=== PATIENT | male | born 1980 | race Caucasian/White ===

== ENCOUNTER → 2021-08-29 | Outpatient (CLI) | payer SELFPAY ==
[~2021-08-29] MED LIST: ACET325 PO; ACIDOPHILUS LA1 EACH PO; AMOX500 PO; AMOX875 PO; CEPH500 PO; FISH1000 PO; HYDACE5 PO; IBUP800 PO; OXYC5 PO; PSECHLCR PO
[2021-08-29 18:24] LABS: BASOPHILS ABSOLUTE AUTO 0.07 K/mm3 (0.00-0.23); BASOPHILS PERCENT AUTO 0 % (0-2); EOSINOPHILS ABSOLUTE AUTO 0.14 K/mm3 (0.00-0.68); EOSINOPHILS PERCENT AUTO 1 % (0-6); Hematocrit 41.4 % (37.0-53.0); Hemoglobin 14.3 g/dL (13.5-17.5); IMMATURE GRAN ABSOLUTE AUTO 0.11 K/mm3 (0.00-0.10); IMMATURE GRAN PERCENT AUTO 1 % (0-1); LYMPHOCYTES ABSOLUTE AUTO 1.62 K/mm3 (0.84-5.20); LYMPHOCYTES PERCENT AUTO 9 % (21-46); MONOCYTES ABSOLUTE AUTO 2.15 K/mm3 (0.16-1.47); MONOCYTES PERCENT AUTO 11 % (4-13); Mean Corpuscular HGB 30.1 pg (26.0-34.0); Mean Corpuscular HGB Conc 34.5 g/dL (31.5-36.5); Mean Corpuscular Volume 87 fL (80-100); Mean Platelet Volume 10.2 fL (9.1-12.4); NEUTROPHILS ABSOLUTE AUTO 14.81 K/mm3 (1.96-9.15); NEUTROPHILS PERCENT AUTO 78 % (41-73); Platelet Count 378 K/mm3 (150-400); RDW Coefficient Variation 12.1 % (11.7-14.2); RDW Standard Deviation 39.2 fL (35.1-46.3); Red Blood Cell Count 4.75 M/mm3 (4.30-5.90)
[2021-08-29 18:42] LABS: Alanine Aminotransfer (ALT/SGP 47 U/L (12-78); Albumin, Blood 3.3 g/dL (3.4-5.0); Albumin/Globulin Ratio 0.7 (0.8-1.8); Alk Phos 164 U/L (50-136); Anion Gap 11 mmol/L (6-16); Aspartate Aminotrans (AST/SGOT 19 U/L (12-37); Bilirubin, Total 0.9 mg/dL (0.1-1.0); Blood Urea Nitrogen 9 mg/dL (8-24); Bun/Creatinine Ratio 12.7 (12.0-20.0); CO2, Blood 28 mmol/L (21-32); Calcium, Blood 9.3 mg/dL (8.5-10.1); Chloride, Blood 95 mmol/L (98-108); Creatinine, Blood 0.71 mg/dL (0.60-1.20); Globulin, Blood 4.7 g/dL (2.2-4.0); Glomerular Filtration Rate >60 (60-); Glucose, Blood 100 mg/dL (70-99); Potassium, Blood 3.1 mmol/L (3.5-5.5); Sodium, Blood 134 mmol/L (136-145)
== END ==
LOC: LAB SHORT 16:21
PROVIDERS: Physician Assistant
DX: R10.9 Unspecified abdominal pain (principal)
CPT/HCPCS: 80053; 85025

== ENCOUNTER 2021-08-30 11:03 | Inpatient (IN) | payer OTHER ==
[~2021-08-30] VITALS: Ht 175.3 cm; Wt 106.6 kg
--- NOTE | 2021-08-31 04:39 | NUR ---
PT IS A&OX4, INDEPENDENT IN BED, IS ABLE TO AMBULATE TO BR TO VIOD. MULTIPLE COMPLAINTS OF PAIN THIS SHIFT, DILAUDID Q2 GIVEN FOR PAIN MANAGEMENT. PT COMPLAINS OF NAUSEA W/ EMESIS, STAGGERED ZOFRAN AND REGLAN FOR N/V. PT SLEEPS INTERMITTENTLY. REMAINS NPO. WILL CONTINUE TO MONITOR THIS PATIENT.
[2021-08-31 05:22] LABS: Alanine Aminotransfer (ALT/SGP 53 U/L (12-78); Albumin, Blood 2.7 g/dL (3.4-5.0); Albumin/Globulin Ratio 0.6 (0.8-1.8); Alk Phos 152 U/L (50-136); Anion Gap 11 mmol/L (6-16); Aspartate Aminotrans (AST/SGOT 33 U/L (12-37); Bilirubin, Total 1.3 mg/dL (0.1-1.0); Blood Urea Nitrogen 11 mg/dL (8-24); Bun/Creatinine Ratio 15.2 (12.0-20.0); CO2, Blood 25 mmol/L (21-32); Calcium, Blood 8.5 mg/dL (8.5-10.1); Chloride, Blood 100 mmol/L (98-108); Creatinine, Blood 0.73 mg/dL (0.60-1.20); Globulin, Blood 4.4 g/dL (2.2-4.0); Glomerular Filtration Rate >60 (60-); Glucose, Blood 116 mg/dL (70-99); Potassium, Blood 3.3 mmol/L (3.5-5.5); Sodium, Blood 136 mmol/L (136-145); Total Protein, Blood 7.1 g/dL (6.4-8.2)
[2021-08-31 05:32] LABS: BASOPHILS ABSOLUTE AUTO 0.05 K/mm3 (0.00-0.23); BASOPHILS PERCENT AUTO 0 % (0-2); EOSINOPHILS ABSOLUTE AUTO 0.03 K/mm3 (0.00-0.68); EOSINOPHILS PERCENT AUTO 0 % (0-6); Hematocrit 39.6 % (37.0-53.0); Hemoglobin 13.1 g/dL (13.5-17.5); IMMATURE GRAN ABSOLUTE AUTO 0.13 K/mm3 (0.00-0.10); IMMATURE GRAN PERCENT AUTO 1 % (0-1); LYMPHOCYTES ABSOLUTE AUTO 0.74 K/mm3 (0.84-5.20); LYMPHOCYTES PERCENT AUTO 4 % (21-46); MONOCYTES PERCENT AUTO 10 % (4-13); Mean Corpuscular HGB 29.7 pg (26.0-34.0); Mean Corpuscular HGB Conc 33.1 g/dL (31.5-36.5); Mean Corpuscular Volume 90 fL (80-100); Mean Platelet Volume 10.1 fL (9.1-12.4); NEUTROPHILS PERCENT AUTO 85 % (41-73); Platelet Count 372 K/mm3 (150-400); RDW Coefficient Variation 12.5 % (11.7-14.2); RDW Standard Deviation 41.5 fL (35.1-46.3); Red Blood Cell Count 4.41 M/mm3 (4.30-5.90); White Blood Cell Count 17.65 K/mm3 (4.00-11.30)
--- NOTE | 2021-08-31 05:36 | NUR ---
PT HAD POTASSIUM IV LAST NIGHT D/T K+ OF 3.1. MOST RECENT K+ IS 3.3.
--- NOTE | 2021-08-31 10:28 | NUR ---
Pt. is in bed and awake. Pt. welcomes my visit. Pt. is experiencing spiking pain, and is currently being treated for pain relief by nursing staff. Pt. is very unsetlled about not having insurance coverage. Listen empatheticially. Pt. verbally confides about recent stress from broken family trust and relationships. Pt. becomes cathartic. Provide pastoral presence. Pt. verbalizes gratitude for other supportive family members in his life. [place] with Pt. Pt. displays evidence of relief and reduced stress. Pt. verbalizes gratitude for both spiritual care and overall care he has received since admitting to hospital.
--- NOTE | 2021-09-01 03:39 | NUR ---
PT IS A&OX4, INDEPENDENT IN BED AND IS ABLE TO MAKE NEEDS KNOWN. HERE FOR PERFORATED DIVERTICULITIS. PAIN CONTROLLED WELL WITH PRN TORADOL AND DILAUDID. DIET HAS BEEN ADVANCED TO CLEAR LIQUID, PT IS TOLERATING THIS CHANGE WELL. PT IS ABLE TO AMBULATE TO . PT SLEEPS THIS NIGHT FOR SEVERAL HOURS. WILL CONTINUE TO MONITOR.
[2021-09-01 04:13] LABS: BASOPHILS ABSOLUTE AUTO 0.04 K/mm3 (0.00-0.23); BASOPHILS PERCENT AUTO 0 % (0-2); EOSINOPHILS ABSOLUTE AUTO 0.15 K/mm3 (0.00-0.68); EOSINOPHILS PERCENT AUTO 1 % (0-6); Hematocrit 36.6 % (37.0-53.0); IMMATURE GRAN ABSOLUTE AUTO 0.18 K/mm3 (0.00-0.10); IMMATURE GRAN PERCENT AUTO 1 % (0-1); LYMPHOCYTES ABSOLUTE AUTO 1.15 K/mm3 (0.84-5.20); LYMPHOCYTES PERCENT AUTO 8 % (21-46); MONOCYTES ABSOLUTE AUTO 1.56 K/mm3 (0.16-1.47); MONOCYTES PERCENT AUTO 11 % (4-13); Mean Corpuscular HGB 29.7 pg (26.0-34.0); Mean Corpuscular HGB Conc 32.8 g/dL (31.5-36.5); Mean Corpuscular Volume 91 fL (80-100); Mean Platelet Volume 9.5 fL (9.1-12.4); NEUTROPHILS ABSOLUTE AUTO 11.08 K/mm3 (1.96-9.15); NEUTROPHILS PERCENT AUTO 78 % (41-73); Platelet Count 350 K/mm3 (150-400); RDW Coefficient Variation 12.5 % (11.7-14.2); RDW Standard Deviation 41.5 fL (35.1-46.3); Red Blood Cell Count 4.04 M/mm3 (4.30-5.90); White Blood Cell Count 14.16 K/mm3 (4.00-11.30)
[2021-09-01 04:26] LABS: Albumin, Blood 2.3 g/dL (3.4-5.0); Anion Gap 7 mmol/L (6-16); Blood Urea Nitrogen 12 mg/dL (8-24); Bun/Creatinine Ratio 16.9 (12.0-20.0); CO2, Blood 30 mmol/L (21-32); Calcium, Blood 8.4 mg/dL (8.5-10.1); Chloride, Blood 98 mmol/L (98-108); Creatinine, Blood 0.71 mg/dL (0.60-1.20); Glomerular Filtration Rate >60 (60-); Glucose, Blood 110 mg/dL (70-99); Magnesium, Blood 2.3 mg/dL (1.6-2.4); Phosphorus, Blood 2.3 mg/dL (2.5-4.9); Potassium, Blood 3.4 mmol/L (3.5-5.5); Sodium, Blood 135 mmol/L (136-145)
--- NOTE | 2021-09-01 18:24 | NUR ---
SHIFT SUMMARY S/P PERFED DIVERTICULITIS, A/OX4, VSS, TOLERATING DIET, PAIN MANAGED PER EMAR, INDEPENDENT IN THE ROOM, PT SHOWERED TODAY AND REPROTED FEELING BETTER AFTERWARDS. ABX GIVEN ORDERED, NO ACUTE EVENTS TODAY, CALL LIGHT IN REACH, WILL CTM AND REPORT TO FANI RN.
--- NOTE | 2021-09-02 03:09 | NUR ---
PT IS A&OX4, VSS, INDEPENDENT IN ROOM AND IS ABLE TO MAKE NEEDS KNOWN. PT REPORTS PAIN BEING MUCH MORE TOLERABLE THIS NIGHT, IS ABLE TO SLEEP IN BETWEEN CARES. PT HAS BEEN AT HOSPITAL FOR 3 DAYS FOR PERFORATED DIVERTICULITIS, TREATED WITH SCHEDULED IV ABX. WILL CONTINUE TO MONITOR THIS PATIENT FOR ANY CHANGES.
--- NOTE | 2021-09-02 15:29 | NUR ---
SHIFT SUMMARY A/O X4, VSS, TOLERATING PO, AMBULATES INDEPENDENTLY, VOIDING WELL, SOME SMALL BM'S, AMBULATES IN HALLS, PAIN BETTER CONTROLLED TODAY USING LESS IV NARCOTICS. NO ACUTE EVENTS THIS SHIFT, CALL LIGHT IN REACH, WILL CTM AND REPORT TO ONCOMING NOC RN.
[2021-09-03 04:46] LABS: BASOPHILS ABSOLUTE AUTO 0.04 K/mm3 (0.00-0.23); BASOPHILS PERCENT AUTO 1 % (0-2); EOSINOPHILS ABSOLUTE AUTO 0.39 K/mm3 (0.00-0.68); EOSINOPHILS PERCENT AUTO 5 % (0-6); Hemoglobin 11.5 g/dL (13.5-17.5); IMMATURE GRAN ABSOLUTE AUTO 0.16 K/mm3 (0.00-0.10); IMMATURE GRAN PERCENT AUTO 2 % (0-1); LYMPHOCYTES ABSOLUTE AUTO 1.37 K/mm3 (0.84-5.20); LYMPHOCYTES PERCENT AUTO 16 % (21-46); MONOCYTES PERCENT AUTO 14 % (4-13); Mean Corpuscular HGB 29.6 pg (26.0-34.0); Mean Corpuscular HGB Conc 32.9 g/dL (31.5-36.5); Mean Corpuscular Volume 90 fL (80-100); Mean Platelet Volume 9.6 fL (9.1-12.4); NEUTROPHILS ABSOLUTE AUTO 5.33 K/mm3 (1.96-9.15); NEUTROPHILS PERCENT AUTO 63 % (41-73); Platelet Count 440 K/mm3 (150-400); RDW Coefficient Variation 12.4 % (11.7-14.2); RDW Standard Deviation 40.9 fL (35.1-46.3); Red Blood Cell Count 3.89 M/mm3 (4.30-5.90); White Blood Cell Count 8.49 K/mm3 (4.00-11.30)
[2021-09-03 05:04] LABS: Anion Gap 4 mmol/L (6-16); Blood Urea Nitrogen 6 mg/dL (8-24); Bun/Creatinine Ratio 8.2 (12.0-20.0); CO2, Blood 32 mmol/L (21-32); Calcium, Blood 8.6 mg/dL (8.5-10.1); Chloride, Blood 103 mmol/L (98-108); Creatinine, Blood 0.74 mg/dL (0.60-1.20); Glomerular Filtration Rate >60 (60-); Glucose, Blood 108 mg/dL (70-99); Potassium, Blood 3.1 mmol/L (3.5-5.5); Sodium, Blood 139 mmol/L (136-145)
--- NOTE | 2021-09-03 05:51 | NUR ---
SHIFT SUMMARY: SARAH IS A&OX4. VSS, NO ACUTE EVENTS OVERNIGHT. HE REPORTS ADEQUATE PAIN CONTROL WITH TORADOL, APAP, AND OXYCODONE. HE IS TOLERATING CLEAR LIQUIDS WELL, INDEPENDENT IN THE ROOM. HE IS LYING IN BED WITH THE CALL LIGHT IN REACH. WILL CONTINUE TO MONITOR UNTIL REPORT IS GIVEN TO DAY SHIFT RN.
--- NOTE | 2021-09-03 18:34 | NUR ---
SHIFT SUMMARY PT HAS DONE WELL T/O SHIFT. PAIN TOLERABLE WITH CURRENT PAIN MGMT ORDERS.TOLERATING FULL LIQUIDS WITH NO C/O N/V. SALINE LOCKED. PLAN IS CONTINUE WITH IV ABX AT THIS TIME.
--- NOTE | 2021-09-04 04:33 | NUR ---
SUMMARY NO NEW ISSUES NOTED. PT PAIN MANAGED WELL. PT HAS BEEN ABLE TO SLEEP WELL DURING SHIFT. PT CURRENTLY SLEEPING IN NO DISTRESS. CALL LIGHT IN REACH.
[2021-09-04 10:14] LABS: BASOPHILS ABSOLUTE AUTO 0.07 K/mm3 (0.00-0.23); BASOPHILS PERCENT AUTO 1 % (0-2); EOSINOPHILS ABSOLUTE AUTO 0.37 K/mm3 (0.00-0.68); EOSINOPHILS PERCENT AUTO 2 % (0-6); Hematocrit 41.2 % (37.0-53.0); Hemoglobin 13.6 g/dL (13.5-17.5); IMMATURE GRAN ABSOLUTE AUTO 0.13 K/mm3 (0.00-0.10); IMMATURE GRAN PERCENT AUTO 1 % (0-1); LYMPHOCYTES ABSOLUTE AUTO 1.34 K/mm3 (0.84-5.20); LYMPHOCYTES PERCENT AUTO 9 % (21-46); MONOCYTES PERCENT AUTO 11 % (4-13); Mean Corpuscular HGB 29.7 pg (26.0-34.0); Mean Corpuscular Volume 90 fL (80-100); Mean Platelet Volume 9.3 fL (9.1-12.4); NEUTROPHILS PERCENT AUTO 76 % (41-73); Platelet Count 546 K/mm3 (150-400); RDW Coefficient Variation 12.4 % (11.7-14.2); RDW Standard Deviation 41.1 fL (35.1-46.3); Red Blood Cell Count 4.58 M/mm3 (4.30-5.90); White Blood Cell Count 15.31 K/mm3 (4.00-11.30)
[2021-09-04 10:27] LABS: Anion Gap 7 mmol/L (6-16); Blood Urea Nitrogen 5 mg/dL (8-24); Bun/Creatinine Ratio 6.2 (12.0-20.0); CO2, Blood 28 mmol/L (21-32); Calcium, Blood 8.9 mg/dL (8.5-10.1); Chloride, Blood 101 mmol/L (98-108); Creatinine, Blood 0.81 mg/dL (0.60-1.20); Glomerular Filtration Rate >60 (60-); Glucose, Blood 120 mg/dL (70-99); Potassium, Blood 3.6 mmol/L (3.5-5.5); Sodium, Blood 136 mmol/L (136-145)
[2021-09-04] MEDS ORDERED: METR500 PO (11:21)
[2021-09-04] MEDS ORDERED: LEVO750 PO (11:21)
[2021-09-04] MEDS ORDERED: PANT20 PO (11:22)
--- NOTE | 2021-09-04 12:08 | NUR ---
DISCHARGE SUMMARY PATIENT ALERT AND ORIENTED THROUGHOUT SHIFT. INDEPENDENT IN ROOM. TOLERATING FULL LIQUIDS. DECLINES PAIN MEDS. ABD SOFT AND NON-TENDER. PASSING GAS AND BM THIS SHIFT. DISCHARGE ORDERS OBTAINED. DISCHARGE EDUCATION GIVEN ON NEW MEDS, ACTIVITY, DIET, AND FOLLOW UP APPTS AND IMAGING. IV DC'D WNL. PT LEFT UNIT AT 1200 VIA WHEELCHAIR FOR HOME.
== END 2021-09-04 11:57 | disposition home or self-care (01) | DRG 392 ==
LOC: ER 11:03 → SURS 11:04
PROVIDERS: Internal Medicine; Nurse Practitioner Acute Care; ADMIT Surgery
DX: K57.20 Diverticulitis of large intestine with perforation and abscess without bleeding (principal); E87.6 Hypokalemia; Z79.899 Other long term (current) drug therapy; F10.20 Alcohol dependence, uncomplicated; Z98.890 Other specified postprocedural states
CPT/HCPCS: 36415; 74177; 80048; 80053; 80069; 83605; 83735; 85025; 87040; 96365; 96366; 96375; 99285-25; A9270; C9113; G0378; J1170; J1885; J2405; J2543; J2765; J3010; J3411; J3480; J7030; J7050; Q9967

== ENCOUNTER 2021-09-19 05:24 | Inpatient (IN) | payer OTHER ==
[~2021-09-19] VITALS: Ht 175.3 cm; Wt 104.2 kg
[~2021-09-19 05:24] MED LIST changes: +LEVO750 PO; +METR500 PO; +PANT20 PO
[2021-09-19 05:53] LABS: BASOPHILS ABSOLUTE AUTO 0.07 K/mm3 (0.00-0.23); BASOPHILS PERCENT AUTO 1 % (0-2); EOSINOPHILS PERCENT AUTO 3 % (0-6); Hematocrit 40.4 % (37.0-53.0); Hemoglobin 13.1 g/dL (13.5-17.5); IMMATURE GRAN ABSOLUTE AUTO 0.04 K/mm3 (0.00-0.10); IMMATURE GRAN PERCENT AUTO 0 % (0-1); LYMPHOCYTES ABSOLUTE AUTO 1.68 K/mm3 (0.84-5.20); LYMPHOCYTES PERCENT AUTO 14 % (21-46); MONOCYTES ABSOLUTE AUTO 1.28 K/mm3 (0.16-1.47); MONOCYTES PERCENT AUTO 11 % (4-13); Mean Corpuscular HGB 28.9 pg (26.0-34.0); Mean Corpuscular HGB Conc 32.4 g/dL (31.5-36.5); Mean Corpuscular Volume 89 fL (80-100); Mean Platelet Volume 9.5 fL (9.1-12.4); NEUTROPHILS ABSOLUTE AUTO 8.76 K/mm3 (1.96-9.15); NEUTROPHILS PERCENT AUTO 72 % (41-73); Platelet Count 561 K/mm3 (150-400); RDW Coefficient Variation 12.9 % (11.7-14.2); RDW Standard Deviation 42.3 fL (35.1-46.3); Red Blood Cell Count 4.53 M/mm3 (4.30-5.90); White Blood Cell Count 12.13 K/mm3 (4.00-11.30)
[2021-09-19 06:05] LABS: Alanine Aminotransfer (ALT/SGP 32 U/L (12-78); Albumin, Blood 2.9 g/dL (3.4-5.0); Albumin/Globulin Ratio 0.6 (0.8-1.8); Alk Phos 126 U/L (50-136); Anion Gap 8 mmol/L (6-16); Aspartate Aminotrans (AST/SGOT 18 U/L (12-37); Bilirubin, Total 0.4 mg/dL (0.1-1.0); Blood Urea Nitrogen 7 mg/dL (8-24); Bun/Creatinine Ratio 9.3 (12.0-20.0); CO2, Blood 26 mmol/L (21-32); Calcium, Blood 9.4 mg/dL (8.5-10.1); Chloride, Blood 104 mmol/L (98-108); Creatinine, Blood 0.75 mg/dL (0.60-1.20); Globulin, Blood 4.6 g/dL (2.2-4.0); Glomerular Filtration Rate >60 (60-); Glucose, Blood 134 mg/dL (70-99); Potassium, Blood 3.8 mmol/L (3.5-5.5); Sodium, Blood 138 mmol/L (136-145); Total Protein, Blood 7.5 g/dL (6.4-8.2)
[2021-09-19 08:17] LABS: Source, Urine Clean Catch
[2021-09-19 08:25] LABS: Bilirubin, Urine Neg (Neg); Blood, Urine Neg (Neg); Glucose Qualitative, Urine Neg (Neg); Ketones, Urine 3+ (Neg); Leukocyte Esterase, Urine Neg (Neg); Nitrite, Urine Neg (Neg); Protein, Urine Neg (Neg); Urobilinogen, Urine NORM (Normal)
[2021-09-19 08:28] LABS: Appearance, Urine Clear (Clear); Color, Urine Yellow (P-Yellow)
--- NOTE | 2021-09-19 10:30 | NUR ---
PT ARRIVED TO UNIT ABOUT 1030 FROM ER, VIA GURNEY. STAND & PIVOT TO BED W/ SBA. VSS ON RA. MOD ABD DISTENTION W/ 5/10 PAIN TO PALPITATION TO RLQ & LLQ. REPORTS 3/10 PAIN AT REST, DENIES NEED FOR PAIN MEDICATION AT THIS TIME. DENIES N/V. ORIENTED TO ROOM & CALL LIGHT.
[2021-09-19 13:56] LABS: Influenza A, PCR NEGATIVE (NEGATIVE); Influenza B, PCR NEGATIVE (NEGATIVE); Resp Syncytial Virus, PCR NEGATIVE (NEGATIVE); SARS-Cov-2 (COVID-19) PCR, MMC NEGATIVE (NEGATIVE)
--- NOTE | 2021-09-19 17:51 | NUR ---
SHIFT SUMMARY VSS SINCE ARRIVAL TO UNIT. PATIENT DEVELOPED CHILLS, TEMP CHECKED AND AT 99.7, PAIN INCREASED T/O SHIFT, PATIENT VOMITTED GREEN FLUID X1, DR. CHARLES MADE AWARE OF PATIENT CONDITION. MD UPDATED PAIN MEDICATION ORDER, NO OTHER ORDERS RECIEVED. REMAINS NPO W/ ICE CHIPS, IV FLUIDS RUNNING. WILL REPORT TO ONCOMING RN.
[2021-09-20 03:48] LABS: BASOPHILS ABSOLUTE AUTO 0.04 K/mm3 (0.00-0.23); BASOPHILS PERCENT AUTO 0 % (0-2); EOSINOPHILS ABSOLUTE AUTO 0.07 K/mm3 (0.00-0.68); EOSINOPHILS PERCENT AUTO 1 % (0-6); Hematocrit 35.2 % (37.0-53.0); Hemoglobin 11.4 g/dL (13.5-17.5); IMMATURE GRAN ABSOLUTE AUTO 0.05 K/mm3 (0.00-0.10); IMMATURE GRAN PERCENT AUTO 0 % (0-1); LYMPHOCYTES ABSOLUTE AUTO 0.58 K/mm3 (0.84-5.20); LYMPHOCYTES PERCENT AUTO 5 % (21-46); MONOCYTES ABSOLUTE AUTO 1.15 K/mm3 (0.16-1.47); MONOCYTES PERCENT AUTO 10 % (4-13); Mean Corpuscular HGB 28.7 pg (26.0-34.0); Mean Corpuscular HGB Conc 32.4 g/dL (31.5-36.5); Mean Corpuscular Volume 89 fL (80-100); Mean Platelet Volume 9.5 fL (9.1-12.4); NEUTROPHILS ABSOLUTE AUTO 10.13 K/mm3 (1.96-9.15); NEUTROPHILS PERCENT AUTO 84 % (41-73); Platelet Count 402 K/mm3 (150-400); RDW Standard Deviation 42.6 fL (35.1-46.3); Red Blood Cell Count 3.97 M/mm3 (4.30-5.90); White Blood Cell Count 12.02 K/mm3 (4.00-11.30)
[2021-09-20 04:05] LABS: Alanine Aminotransfer (ALT/SGP 24 U/L (12-78); Albumin, Blood 2.5 g/dL (3.4-5.0); Albumin/Globulin Ratio 0.6 (0.8-1.8); Alk Phos 129 U/L (50-136); Anion Gap 8 mmol/L (6-16); Aspartate Aminotrans (AST/SGOT 14 U/L (12-37); Blood Urea Nitrogen 7 mg/dL (8-24); Bun/Creatinine Ratio 9.2 (12.0-20.0); CO2, Blood 26 mmol/L (21-32); Calcium, Blood 8.6 mg/dL (8.5-10.1); Chloride, Blood 102 mmol/L (98-108); Creatinine, Blood 0.76 mg/dL (0.60-1.20); Globulin, Blood 4.2 g/dL (2.2-4.0); Glomerular Filtration Rate >60 (60-); Glucose, Blood 101 mg/dL (70-99); Potassium, Blood 3.6 mmol/L (3.5-5.5); Sodium, Blood 136 mmol/L (136-145); Total Protein, Blood 6.7 g/dL (6.4-8.2)
--- NOTE | 2021-09-20 05:05 | NUR ---
SODA JERKER SUMMARY PT AAOX4 AND INDEPENDENT IN ROOM. NPO EXCEPT FOR ICE CHIPS. MEDICATED WITH 1 MG IV DILAUDID Q 2-3 HOURS FOR LOWER ABD AND BACK PAIN. PT HAS HAD MULTIPLE BM'S TONIGHT. 2 TIMES TONIGHT PT WOULD DEVELOP SOME CHILLS FOLLOWED BY NAUSEA WITH A LOW GRADE TEMP 99'S. PER DAY SHIFT RN PT EXPERIENCED SAME THING EARLIER. SYMPTOMS WOULD QUICKLY SUBSIDE. VSS, WILL CONTINUE TO MONITOR.
--- NOTE | 2021-09-20 11:30 | NUR ---
Pt. is in bed and welcomes my visit. Pt. is a re-admit. Pt. is unsettled by the the resurance of his infection, resulting in hospitalization. 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 Pt. displays evidence of overall improved health and verbalized that he had been eating well and lost weight since his last discharge. Prayed with pt. Pt. verbalized gratitude for the spiritual care visit.
--- NOTE | 2021-09-20 19:08 | NUR ---
SHIFT SUMMARY VSS ON RA, MILD ABD DISTENTION TENDER TO PALPITATION IN RLQ. REPORTS PAIN TO MOVE TO BACK AT TIMES. PAIN MANAGED W/ DILAUDID PER EMAR. ADVANCED TO CLEAR LIQUIDS TODAY AND TOLERATING WELL. DENIES N/V, DENIES FLATUS, REPORTED BM THIS AM. AMBULATED HALLWAYS WELL X1. WILL REPORT TO ONCIMING RN.
[2021-09-21 04:01] LABS: BASOPHILS ABSOLUTE AUTO 0.05 K/mm3 (0.00-0.23); BASOPHILS PERCENT AUTO 1 % (0-2); EOSINOPHILS ABSOLUTE AUTO 0.22 K/mm3 (0.00-0.68); EOSINOPHILS PERCENT AUTO 3 % (0-6); IMMATURE GRAN ABSOLUTE AUTO 0.04 K/mm3 (0.00-0.10); IMMATURE GRAN PERCENT AUTO 1 % (0-1); LYMPHOCYTES ABSOLUTE AUTO 1.31 K/mm3 (0.84-5.20); LYMPHOCYTES PERCENT AUTO 16 % (21-46); MONOCYTES ABSOLUTE AUTO 1.24 K/mm3 (0.16-1.47); MONOCYTES PERCENT AUTO 15 % (4-13); Mean Corpuscular HGB 29.3 pg (26.0-34.0); Mean Corpuscular HGB Conc 33.3 g/dL (31.5-36.5); Mean Corpuscular Volume 88 fL (80-100); Mean Platelet Volume 9.6 fL (9.1-12.4); NEUTROPHILS ABSOLUTE AUTO 5.51 K/mm3 (1.96-9.15); NEUTROPHILS PERCENT AUTO 66 % (41-73); Platelet Count 402 K/mm3 (150-400); RDW Coefficient Variation 13.2 % (11.7-14.2); RDW Standard Deviation 42.6 fL (35.1-46.3); Red Blood Cell Count 4.09 M/mm3 (4.30-5.90); White Blood Cell Count 8.37 K/mm3 (4.00-11.30)
[2021-09-21 04:20] LABS: Alanine Aminotransfer (ALT/SGP 28 U/L (12-78); Albumin, Blood 2.6 g/dL (3.4-5.0); Albumin/Globulin Ratio 0.6 (0.8-1.8); Alk Phos 131 U/L (50-136); Anion Gap 9 mmol/L (6-16); Aspartate Aminotrans (AST/SGOT 14 U/L (12-37); Bilirubin, Total 0.5 mg/dL (0.1-1.0); Blood Urea Nitrogen 5 mg/dL (8-24); Bun/Creatinine Ratio 6.6 (12.0-20.0); CO2, Blood 29 mmol/L (21-32); Calcium, Blood 8.8 mg/dL (8.5-10.1); Chloride, Blood 99 mmol/L (98-108); Creatinine, Blood 0.76 mg/dL (0.60-1.20); Globulin, Blood 4.3 g/dL (2.2-4.0); Glomerular Filtration Rate >60 (60-); Glucose, Blood 109 mg/dL (70-99); Potassium, Blood 3.5 mmol/L (3.5-5.5); Sodium, Blood 137 mmol/L (136-145); Total Protein, Blood 6.9 g/dL (6.4-8.2)
--- NOTE | 2021-09-21 05:19 | NUR ---
GEOSPATIAL DEVELOPERTECHNOLOGY APPLICATIONS ENGINEER SUMMARY PATIENT A&O X4 AND COOPERATIVE WITH CARE THROUGHOUT THE NIGHT. PATIENT COMPLAINED OF 4/10 ABDOMINAL PAIN PERIODICALLY THROUGHOUT THE NIGHT. PATIENT WAS MEDICATED WITH IV DILAUDED PER EMAR AND PAIN WAS REDUCED TO 3/10. PATIENT SLEPT FOR SEVERAL HOURS DURING THE NIGHT. IV ZOSYN WAS ADMINISTERED PER EMAR. VSS. NO ACUTE CHANGES OCCURRED DURING THE NIGHT.
--- NOTE | 2021-09-21 17:48 | NUR ---
SHIFT SUMMARY VSS ON RA. ABDOMINAL PAIN T/O SHOFT, MEDICATED PER EMAR. REPORTS PAIN MUCH IMPORVED W/ THE ORAL PAIN MEDICATION. AMBULATED HALLS & UP TO CHAIR T/O DAY. TOLERATING CLEAR LIQUID DIET WELL, DENIES N/V. REPORTS HAVING 2 BM'S TODAY, SMALL AND LIQUID/SOFT. WILL REPORT TO ONCOMING RN.
--- NOTE | 2021-09-21 21:36 | NUR ---
REPORT TO ISABELLE SALDAÑA TO ASSUME CARE OF PT.
--- NOTE | 2021-09-22 04:18 | NUR ---
CLAIM REP SUMMARY PT AAOX4 AND INDEPENDENT. MEDICATED AT START OF SHIFT WITH IV DILAUDID X1 FOR SOME BREAKTHROUGH PAIN, HOWEVER PAIN HAS BEEN FAIRLY WELL MANAGED WITH PO PAIN MEDS SINCE THEN. GOOD PO FLUID INTAKE. VSS, WILL CONTINUE TO MONITOR.
[2021-09-22 05:17] LABS: BASOPHILS ABSOLUTE AUTO 0.03 K/mm3 (0.00-0.23); BASOPHILS PERCENT AUTO 0 % (0-2); EOSINOPHILS ABSOLUTE AUTO 0.23 K/mm3 (0.00-0.68); EOSINOPHILS PERCENT AUTO 3 % (0-6); Hematocrit 35.8 % (37.0-53.0); Hemoglobin 11.9 g/dL (13.5-17.5); IMMATURE GRAN ABSOLUTE AUTO 0.03 K/mm3 (0.00-0.10); IMMATURE GRAN PERCENT AUTO 0 % (0-1); LYMPHOCYTES ABSOLUTE AUTO 1.24 K/mm3 (0.84-5.20); LYMPHOCYTES PERCENT AUTO 15 % (21-46); MONOCYTES ABSOLUTE AUTO 1.32 K/mm3 (0.16-1.47); MONOCYTES PERCENT AUTO 16 % (4-13); Mean Corpuscular HGB 29.1 pg (26.0-34.0); Mean Corpuscular HGB Conc 33.2 g/dL (31.5-36.5); Mean Corpuscular Volume 88 fL (80-100); Mean Platelet Volume 9.5 fL (9.1-12.4); NEUTROPHILS ABSOLUTE AUTO 5.62 K/mm3 (1.96-9.15); NEUTROPHILS PERCENT AUTO 66 % (41-73); Platelet Count 417 K/mm3 (150-400); RDW Standard Deviation 41.8 fL (35.1-46.3); Red Blood Cell Count 4.09 M/mm3 (4.30-5.90); White Blood Cell Count 8.47 K/mm3 (4.00-11.30)
[2021-09-22] MEDS ORDERED: AMOCLA875 PO (08:14)
[2021-09-22] MEDS ORDERED: Percocet 5-3251 EACH PO (08:15)
== END 2021-09-22 10:00 | disposition home or self-care (01) | DRG 392 ==
LOC: ER 05:24 → SURS 05:25
PROVIDERS: Emergency Medicine; Family Medicine; ADMIT Surgery
DX: K57.20 Diverticulitis of large intestine with perforation and abscess without bleeding (principal); Z79.899 Other long term (current) drug therapy; Z20.822 Contact with and (suspected) exposure to COVID-19
CPT/HCPCS: 0241U; 36415; 74177; 80053; 81003; 83690; 85025; 96365; 96366; 96375; 96376; 99285-25; A9270; G0378; J1170; J2270; J2405; J2543; J7030; J7120; Q9967

== ENCOUNTER 2021-11-12 15:44 | Emergency (ER) | payer OTHER ==
[~2021-11-12] VITALS: Ht 175.3 cm; Wt 93.9 kg
[~2021-11-12 15:44] MED LIST changes: +AMOCLA875 PO; +Percocet 5-3251 EACH PO
[2021-11-12 16:54] LABS: BASOPHILS ABSOLUTE AUTO 0.03 K/mm3 (0.00-0.23); BASOPHILS PERCENT AUTO 0 % (0-2); EOSINOPHILS ABSOLUTE AUTO 0.24 K/mm3 (0.00-0.68); EOSINOPHILS PERCENT AUTO 2 % (0-6); IMMATURE GRAN ABSOLUTE AUTO 0.03 K/mm3 (0.00-0.10); IMMATURE GRAN PERCENT AUTO 0 % (0-1); LYMPHOCYTES ABSOLUTE AUTO 1.51 K/mm3 (0.84-5.20); LYMPHOCYTES PERCENT AUTO 14 % (21-46); MONOCYTES ABSOLUTE AUTO 0.98 K/mm3 (0.16-1.47); MONOCYTES PERCENT AUTO 9 % (4-13); Mean Corpuscular HGB 28.7 pg (26.0-34.0); Mean Corpuscular HGB Conc 32.4 g/dL (31.5-36.5); Mean Corpuscular Volume 89 fL (80-100); Mean Platelet Volume 9.8 fL (9.1-12.4); NEUTROPHILS ABSOLUTE AUTO 7.95 K/mm3 (1.96-9.15); NEUTROPHILS PERCENT AUTO 74 % (41-73); Platelet Count 317 K/mm3 (150-400); RDW Coefficient Variation 14.4 % (11.7-14.2); RDW Standard Deviation 46.4 fL (35.1-46.3); Red Blood Cell Count 4.18 M/mm3 (4.30-5.90); White Blood Cell Count 10.74 K/mm3 (4.00-11.30)
[2021-11-12 17:16] LABS: Albumin, Blood 3.4 g/dL (3.4-5.0); Albumin/Globulin Ratio 0.8 (0.8-1.8); Bilirubin, Total 0.5 mg/dL (0.1-1.0); Bun/Creatinine Ratio 11.5 (12.0-20.0); Calcium, Blood 9.2 mg/dL (8.5-10.1); Creatinine, Blood 0.7 mg/dL (0.60-1.20); Globulin, Blood 4.2 g/dL (2.2-4.0); Potassium, Blood 3.8 mmol/L (3.5-5.5); Total Protein, Blood 7.6 g/dL (6.4-8.2)
[2021-11-12] MEDS ORDERED: HYDR1TAB94 PO (20:23)
[2021-11-12] MEDS ORDERED: ONDA4ODT MM (20:23)
[2021-11-12] MEDS ORDERED: AMOCLA875 PO (20:23)
[2021-11-13] MEDS ORDERED: HYDR1TAB94 PO (14:58)
[2021-11-13] MEDS ORDERED: AMOCLA875 PO (14:58)
== END 2021-11-12 20:36 | disposition home or self-care (01) ==
LOC: ER 15:44
PROVIDERS: Physician Assistant
DX: R10.32 Left lower quadrant pain (principal); R93.5 Abnormal findings on diagnostic imaging of other abdominal regions, including retroperitoneum; Z87.19 Personal history of other diseases of the digestive system; Z79.899 Other long term (current) drug therapy
CPT/HCPCS: 36415; 74177; 80053; 83690; 85025; 96374-59; 99284-25; A9270; Q9967

== ENCOUNTER 2021-12-10 19:09 | Inpatient (IN) | payer OTHER ==
[~2021-12-10] VITALS: Ht 175.3 cm; Wt 90.7 kg
[~2021-12-10 19:09] MED LIST changes: +HYDR1TAB94 PO; +ONDA4ODT MM
[2021-12-10 20:27] LABS: BASOPHILS ABSOLUTE AUTO 0.03 K/mm3 (0.00-0.23); BASOPHILS PERCENT AUTO 0 % (0-2); EOSINOPHILS ABSOLUTE AUTO 0.05 K/mm3 (0.00-0.68); EOSINOPHILS PERCENT AUTO 0 % (0-6); Hematocrit 39.3 % (37.0-53.0); IMMATURE GRAN ABSOLUTE AUTO 0.08 K/mm3 (0.00-0.10); IMMATURE GRAN PERCENT AUTO 1 % (0-1); LYMPHOCYTES ABSOLUTE AUTO 1.21 K/mm3 (0.84-5.20); LYMPHOCYTES PERCENT AUTO 7 % (21-46); MONOCYTES ABSOLUTE AUTO 1.27 K/mm3 (0.16-1.47); MONOCYTES PERCENT AUTO 7 % (4-13); Mean Corpuscular HGB 28.3 pg (26.0-34.0); Mean Corpuscular HGB Conc 33.1 g/dL (31.5-36.5); Mean Corpuscular Volume 85 fL (80-100); Mean Platelet Volume 9.8 fL (9.1-12.4); NEUTROPHILS PERCENT AUTO 85 % (41-73); Platelet Count 329 K/mm3 (150-400); RDW Coefficient Variation 14.7 % (11.7-14.2); RDW Standard Deviation 46.1 fL (35.1-46.3); White Blood Cell Count 17.44 K/mm3 (4.00-11.30)
[2021-12-10 20:52] LABS: Albumin, Blood 3.5 g/dL (3.4-5.0); Albumin/Globulin Ratio 0.8 (0.8-1.8); Bilirubin, Total 1.2 mg/dL (0.1-1.0); Calcium, Blood 9.4 mg/dL (8.5-10.1); Creatinine, Blood 0.72 mg/dL (0.60-1.20); Globulin, Blood 4.3 g/dL (2.2-4.0); Potassium, Blood 3.3 mmol/L (3.5-5.5); Total Protein, Blood 7.8 g/dL (6.4-8.2)
[2021-12-10 21:17] LABS: Source, Urine Clean Catch
[2021-12-10 21:22] LABS: Appearance, Urine Clear (Clear); Bilirubin, Urine Neg (Neg); Blood, Urine Neg (Neg); Color, Urine Pale Yellow (P-Yellow); Glucose Qualitative, Urine Neg (Neg); Ketones, Urine 2+ (Neg); Leukocyte Esterase, Urine Neg (Neg); Nitrite, Urine Neg (Neg); Protein, Urine Neg (Neg); Specific Gravity, Urine 1.005 (1.003-1.022); Urobilinogen, Urine NORM (Normal); pH, Urine 6.5 (5.0-8.0)
--- NOTE | 2021-12-11 17:54 | NUR ---
SHIFT SUMMARY PT A&OX4, VSS/RA, WAL[place] PO CLD, VOIDING, AMB INDEPENDENTLY IN ROOM/HALLWAY/BRP. PAIN TREATED WITH 5 MG OXY/TYLENOL/TORADOL AND DILAUDID 0.5 MG X1. WILL REPORT TO ONCOMING NOC RN.
[2021-12-12 04:47] LABS: BASOPHILS ABSOLUTE AUTO 0.03 K/mm3 (0.00-0.23); BASOPHILS PERCENT AUTO 0 % (0-2); EOSINOPHILS PERCENT AUTO 2 % (0-6); Hematocrit 34.4 % (37.0-53.0); IMMATURE GRAN ABSOLUTE AUTO 0.03 K/mm3 (0.00-0.10); IMMATURE GRAN PERCENT AUTO 0 % (0-1); LYMPHOCYTES ABSOLUTE AUTO 1.16 K/mm3 (0.84-5.20); LYMPHOCYTES PERCENT AUTO 11 % (21-46); MONOCYTES ABSOLUTE AUTO 1.09 K/mm3 (0.16-1.47); MONOCYTES PERCENT AUTO 11 % (4-13); Mean Corpuscular HGB 28.1 pg (26.0-34.0); Mean Corpuscular Volume 88 fL (80-100); Mean Platelet Volume 10.1 fL (9.1-12.4); NEUTROPHILS ABSOLUTE AUTO 7.89 K/mm3 (1.96-9.15); NEUTROPHILS PERCENT AUTO 76 % (41-73); Platelet Count 253 K/mm3 (150-400); RDW Coefficient Variation 14.6 % (11.7-14.2); RDW Standard Deviation 47.2 fL (35.1-46.3); Red Blood Cell Count 3.92 M/mm3 (4.30-5.90)
[2021-12-12 05:02] LABS: Bun/Creatinine Ratio 6.7 (12.0-20.0); Calcium, Blood 8.7 mg/dL (8.5-10.1); Creatinine, Blood 0.75 mg/dL (0.60-1.20); Potassium, Blood 3.8 mmol/L (3.5-5.5)
--- NOTE | 2021-12-12 06:26 | NUR ---
PT VSS T/O NIGHT. PT REP ABD PAIN LESS SHARP THIS AM, STATES IT FEELS "MORE DULL AND CRAMPY" PT REP PASSING FLATUS, NO BM YET. PT W[place] CL PO, DENIES N/V, IS VOIDING URINE W/O DIFFICULTY. PT AMB INDEP IN ROOM, WALDEMAR WELL. IVF AND ABX CONT PER ORDERS.
--- NOTE | 2021-12-12 12:10 | NUR ---
Pt. is sitting up in bed and on his laptop. Pt. welcomes my visit. Pt. is unsettled about the four hospital visits he has had in the last several months. Listen empathetically and normalize the Pt. experience. Pt. displays evidence of confidence and occsasional pain and discomfort. [place] rapport. Prayed for Pt. Pt. verbalized gratitude for the spiritual care visit.
--- NOTE | 2021-12-12 15:44 | NUR ---
SHIFT SUMMARY PT A&OX4, VSS/RA, W[place]DE[place] CLD, VOIDING WELL, INDEPENDENT IN ROOM/HALLWAY, PAIN TREATED WITH 5 OXY, TYLENOL AND TORADOL; DILAUDID 0.5 MG GIVEN 1X. PT STILL REP ABD PAIN 2-4. ABX INFUSED PER EMAR; SL OTHERWISE. WILL REPORT TO ONCOMING NOC RN.
--- NOTE | 2021-12-13 06:36 | NUR ---
PT VSS T/O NIGHT. PT REP ABD PAIN 08/17. REP PAIN CRAMPY AT REST, SHARP W/MVMT. PT WALDEMAR CL, DENIED N/V, REP + FLATUS, NO BM YET. PT INDEP IN ROOM, IS VOIDING URINE W/O DIFFICULTY.
--- NOTE | 2021-12-13 07:21 | NUR ---
ASSUMED CARE: PT ALERT AND TALKING TO STAFF DURING BEDSIDE REPORT. DENIES COMPLAINTS AT THIS TIME. BUILDING CLEANER AND NIGHT RN AT BEDSIDE. NO ACUTE NEEDS OR CONCERNS.
--- NOTE | 2021-12-13 13:27 | NUR ---
DR JERRY CAME TO SEE PT AND EDUCATED HIM ON PAIN MANAGEMENT AND COURSE OF ACTION. DR TO CHANGE PAIN MEDICATION TO SEE IF MANAGEMENT IMPROVES WITH THIS AND DR CHARLES WILL FOLLOW UP DAY TO DAY
--- NOTE | 2021-12-13 15:45 | NUR ---
Pt. is awake in bed and welcomes my visit. Pt. requests I close the door and quickly becomes cathartic. Pt. displays evidence of pressure to be strong for family when he is dealing with such discomfort. Pastoral career counselor is given with a calming presence. Pt. displays evidence of peace and trust and we re-establish rapport while facilitating a life review. Pt. still experiences abdominal pain. [place] with Pt. Pt. verbalizes gratitude for the spiritual care visit.
--- NOTE | 2021-12-13 18:46 | NUR ---
SHIFT SUMMARY: WORKED WITH PT ON PAIN MANAGEMENT TODAY AND FOUND THAT [address] JERRY'S FOCUS IS ON PAIN MANAGEMENT PRIOR TO DC. PT MEDICATED X1 FOR NAUSEA. AMBULATORY IN HALLS AND INDEPENDENT. NO ACUTE NEEDS OR CONCERNS AT THIS TIME.
[2021-12-14 04:45] LABS: BASOPHILS ABSOLUTE AUTO 0.03 K/mm3 (0.00-0.23); BASOPHILS PERCENT AUTO 0 % (0-2); EOSINOPHILS ABSOLUTE AUTO 0.32 K/mm3 (0.00-0.68); EOSINOPHILS PERCENT AUTO 3 % (0-6); Hematocrit 33.3 % (37.0-53.0); Hemoglobin 10.6 g/dL (13.5-17.5); IMMATURE GRAN ABSOLUTE AUTO 0.03 K/mm3 (0.00-0.10); IMMATURE GRAN PERCENT AUTO 0 % (0-1); LYMPHOCYTES ABSOLUTE AUTO 1.28 K/mm3 (0.84-5.20); LYMPHOCYTES PERCENT AUTO 12 % (21-46); MONOCYTES ABSOLUTE AUTO 1.38 K/mm3 (0.16-1.47); MONOCYTES PERCENT AUTO 13 % (4-13); Mean Corpuscular HGB 27.8 pg (26.0-34.0); Mean Corpuscular HGB Conc 31.8 g/dL (31.5-36.5); Mean Corpuscular Volume 87 fL (80-100); Mean Platelet Volume 9.9 fL (9.1-12.4); NEUTROPHILS ABSOLUTE AUTO 7.67 K/mm3 (1.96-9.15); NEUTROPHILS PERCENT AUTO 72 % (41-73); Platelet Count 318 K/mm3 (150-400); RDW Coefficient Variation 14.1 % (11.7-14.2); RDW Standard Deviation 44.6 fL (35.1-46.3); Red Blood Cell Count 3.81 M/mm3 (4.30-5.90); White Blood Cell Count 10.71 K/mm3 (4.00-11.30)
[2021-12-14 05:03] LABS: Bun/Creatinine Ratio 3.7 (12.0-20.0); Creatinine, Blood 0.81 mg/dL (0.60-1.20); Potassium, Blood 3.3 mmol/L (3.5-5.5)
--- NOTE | 2021-12-14 07:36 | NUR ---
PT AWOKE AROUND MIDNIGHT W/INCREASED ABD PAIN. PT REP PAIN MORE SHARP, REQUIRED IV DILAUDID FOR BREAKTHROUGH PAIN. PT REP PAIN LESS SEVERE THIS AM. RATES PAIN 3/10, APPEARS MORE COMFORTABLE THAN PREVIOUS RATINGS OF 3/10, REP 10MG OXY MANAGING PAIN (OTHER THAN PREV MENTIONED EPISODE). PT WAL[place] FL PO, DENIED N/V, REP +FLATUS. ABD SLIGHTLY MORE FIRM THIS AM. PT LYING IN BED THIS AM DURING BEDSIDE REPORT, DENIED NEEDS.
--- NOTE | 2021-12-14 18:47 | NUR ---
pt has been stable and afebrile this shift. pt pain managed with prn meds. mild nausea x2, prn zofran effective. poor appetite and tolerance of full liquid diet. pt to change to oral abx this evening. pt had bm this shift. indep in room. labs to repeat in am. plan for resection outpatient.
--- NOTE | 2021-12-15 04:09 | NUR ---
ASSUMED CARE OF PT AT 1900. PT IS A&OX4, INDEPENDENT IN ROOM AND CALLS APPROPRIATELY. STARTED ON ORAL ABX LAST EVENING, PT TOLERATING CLEAR DIET. NO COMPLAINTS OF NAUSEA THIS SHIFT. DALE CONTROLLED WITH PRN EDWARD 10MG. PT RESTS BETWEEN CARES, SLEEPS 6+ HOURS THIS SHIFT. WILL GIVE HANDOFF REPORT TO ONCOMING DAYSHIFT RN
[2021-12-15 04:24] LABS: BASOPHILS ABSOLUTE AUTO 0.03 K/mm3 (0.00-0.23); BASOPHILS PERCENT AUTO 0 % (0-2); EOSINOPHILS ABSOLUTE AUTO 0.43 K/mm3 (0.00-0.68); EOSINOPHILS PERCENT AUTO 4 % (0-6); Hematocrit 32.9 % (37.0-53.0); Hemoglobin 10.8 g/dL (13.5-17.5); IMMATURE GRAN ABSOLUTE AUTO 0.03 K/mm3 (0.00-0.10); IMMATURE GRAN PERCENT AUTO 0 % (0-1); LYMPHOCYTES ABSOLUTE AUTO 1.59 K/mm3 (0.84-5.20); LYMPHOCYTES PERCENT AUTO 16 % (21-46); MONOCYTES ABSOLUTE AUTO 1.22 K/mm3 (0.16-1.47); MONOCYTES PERCENT AUTO 12 % (4-13); Mean Corpuscular HGB Conc 32.8 g/dL (31.5-36.5); Mean Corpuscular Volume 85 fL (80-100); Mean Platelet Volume 9.3 fL (9.1-12.4); NEUTROPHILS ABSOLUTE AUTO 6.74 K/mm3 (1.96-9.15); NEUTROPHILS PERCENT AUTO 67 % (41-73); Platelet Count 326 K/mm3 (150-400); RDW Coefficient Variation 13.9 % (11.7-14.2); RDW Standard Deviation 43.2 fL (35.1-46.3); Red Blood Cell Count 3.86 M/mm3 (4.30-5.90); White Blood Cell Count 10.04 K/mm3 (4.00-11.30)
[2021-12-15] MEDS ORDERED: ONDA4ODT MM (09:36)
[2021-12-15] MEDS ORDERED: AMOCLA875 PO (09:36)
[2021-12-15] MEDS ORDERED: ROXICODONE5 MG PO (09:38)
--- NOTE | 2021-12-15 11:02 | NUR ---
DISCHARGE: PACKET PRINTED AND PT EDUCATED. PT GIVEN SCRIPTS, DID NOT NEED TO FAX ANY MEDS. PT DENIED NEED FOR WHEELCHAIR, LEFT UNIT ON FOOT WITH SON AT ABOUT 1045
== END 2021-12-15 10:44 | disposition home or self-care (01) | DRG 391 ==
LOC: ER 19:09 → SURS 12-11 04:06
PROVIDERS: Physician Assistant; Surgery; ADMIT Surgery
DX: K57.20 Diverticulitis of large intestine with perforation and abscess without bleeding (principal); K65.1 Peritoneal abscess; E11.9 Type 2 diabetes mellitus without complications; D72.829 Elevated white blood cell count, unspecified; Z79.2 Long term (current) use of antibiotics; Z79.891 Long term (current) use of opiate analgesic; Z79.899 Other long term (current) drug therapy; Z98.890 Other specified postprocedural states
CPT/HCPCS: 36415; 74177; 80048; 80053; 81003; 83605; 83690; 85025; 87040; 96374; 96375; 96376; 99285-25; A9270; G0378; J1170; J1885; J2270; J2405; J2543; J3480; J7030; J7050; Q9967

== ENCOUNTER 2022-03-28 07:00 | Day surgery (SDC) | payer OTHER ==
[~2022-03-28] VITALS: Ht 175.3 cm; Wt 84.6 kg
[~2022-03-28 07:00] MED LIST changes: +Acerola C500 MG PO; +Children's Clari5 MG PO; +OMEP20ER PO; +POTA8 PO; +PROBIOTIC1 EA13 PO; +PSYSENPA PO; +ROXICODONE5 MG PO; +ZYRTEC10 M2 PO; +[UNRECOGNIZED DRUG - CODE] PO
[2022-04-03] MEDS ORDERED: DOCU100 PO (13:31)
[2022-04-03] MEDS ORDERED: Percocet 5-3251 EACH PO (13:31)
== END 2022-03-28 09:12 | disposition home or self-care (01) ==
LOC: ORSCSDS 07:00
PROVIDERS: Surgery
PROC: 0DJD8ZZ Inspection of Lower Intestinal Tract, Via Natural or Artificial Opening Endoscopic (ICD-10-PCS; principal; 2022-03-28 08:00)
DX: K57.20 Diverticulitis of large intestine with perforation and abscess without bleeding (principal); Z87.19 Personal history of other diseases of the digestive system; K64.8 Other hemorrhoids; Z79.899 Other long term (current) drug therapy
CPT/HCPCS: J2704; J7120

== ENCOUNTER 2023-04-10 06:05 | Day surgery (SDC) | payer OTHER ==
[~2023-04-10] VITALS: Ht 175.3 cm; Wt 94.7 kg
[~2023-04-10 06:05] MED LIST changes: +ASCO500 PO; +Acetaminophen325 M1 PO; +CALCIUM CIT 311 EAC7 PO; +DOCU100 PO; +POTASSIUM99 M3; +PROBIOTIC PO; +PSYSENPA
[2023-04-10 06:37] VITALS: BP 119/77
--- NOTE | 2023-04-10 07:17 | NUR ---
History, Chart, Medications and Allergies reviewed before start of procedure. Patient confirms NPO status and agrees with scheduled surgery. Surgical site prepped with 2% Chlorhexidine cloth wipe. Patient reports completing Chlorhexadine shower X2 prior to admission to hospital. Pre-Op teaching done. Pt verbalizes understanding. Patient States Post-Procedure ride home has been arranged.
[2023-04-10 09:00] VITALS: BP 133/88
[2023-04-10 09:05] VITALS: BP 125/76
[2023-04-10 09:15] VITALS: BP 131/99
--- NOTE | 2023-04-10 09:25 | NUR ---
REPORT FROM MERVIN RICHARD RN. PT AXOX4, ABLE TO REPOSITION SELF IN BED. REQUESTED AND TOLERATING PO FLUIDS. PT HAS ONE INCISION SITE ON CENTER ABD BELOW UMBILICUS THAT IS COVERED WITH GAUZE AND CLEAR OPSITE THAT IS CDI. NO REDNESS, INFLAMMATION OR DRAINAGE NOTED.
[2023-04-10 09:45] VITALS: BP 129/84
--- NOTE | 2023-04-10 10:01 | NUR ---
Patient up to Ambulate independently. Gait steady. Discharge instructions reviewed with patient. Patient verbalizes understanding. Copy given to patient to take home. Dressing to procedure site clean, dry, intact with no visible drainage, swelling, erythema or bruising noted. Patient States Post-Procedure ride home has been arranged. Discharged via wheelchair to private car for ride home. ALL BELONGINGS RETURNED TO PATIENT.
== END 2023-04-10 09:55 | disposition home or self-care (01) ==
LOC: ORSCMMR 06:05 → ORD 07:30 → ORSCMMR 07:30
PROVIDERS: Surgery
PROC: 0WUF0JZ Supplement Abdominal Wall with Synthetic Substitute, Open Approach (ICD-10-PCS; principal; 2023-04-10 07:30)
DX: K43.2 Incisional hernia without obstruction or gangrene (principal); K21.9 Gastro-esophageal reflux disease without esophagitis; Z79.899 Other long term (current) drug therapy
CPT/HCPCS: A9270; C1781; J0690; J1100; J1885; J2250; J2405; J2704; J3010; J7120